=== PATIENT | female | born 1975 | race Caucasian/White ===

== ENCOUNTER 2017-03-07 04:39 | Emergency (ER) | payer OTHER ==
[~2017-03-07] VITALS: Ht 165.1 cm; Wt 63.5 kg
[2017-03-07 04:45] VITALS: BP_SYST 133
[2017-03-07 06:57] VITALS: BP_SYST 128
== END 2017-03-07 06:57 | disposition home or self-care (01) ==
LOC: SED 04:39
DX: M54.12 Radiculopathy, cervical region (principal); M79.602 Pain in left arm; Z87.891 Personal history of nicotine dependence
CPT/HCPCS: 72125-TC; 99284